=== PATIENT | female | born 1950 | race Caucasian/White ===

== ENCOUNTER → 2017-08-21 | Outpatient (CLI) | payer BC, MEDICARE ==
[~2017-08-21] MED LIST: DENOSUMAB 60 MG/ML 1 ML SYRINGE SQ ONE
[2017-08-21 08:25] VITALS: BP 138/71; PULSE 47; RESP 16; TEMP 98.1
== END | disposition home or self-care (01) ==
LOC: PROCWHC3 08:16
PROVIDERS: ATTEND Family Medicine
DX: M81.0 Age-related osteoporosis without current pathological fracture (principal)
CPT/HCPCS: 96372; J0897

== ENCOUNTER → 2020-06-30 | Outpatient (CLI) | payer MEDICARE ==
--- NOTE | 2020-07-03 08:43 | MM ---
Reason for exam: screening (asymptomatic). Last mammogram was performed 4 years and 1 month ago. History: Patient is postmenopausal. Family history of breast cancer in sister at age 62. Benign MG stereo VAD BX LT of the left breast, December 10, 2015. Took progesterone for 2 months. Physical Findings: A clinical breast exam by your physician is recommended on an annual basis and results should be correlated with mammographic findings. MG 3D Screening Mammo W/Cad Bilateral CC and MLO view(s) were taken. Prior study comparison: February 14, 2018, mammogram. June 06, 2016, left breast MG diagnostic mammo LT w CAD. November 23, 2015, mammogram, performed at [facility]. There are scattered fibroglandular densities. Previous mammotome biopsy in the left breast. There is no discrete abnormality. ASSESSMENT: Benign, BI-RAD 2 RECOMMENDATION: Routine screening mammogram of both breasts in 1 year.
== END | disposition home or self-care (01) ==
LOC: RADMAMWWP 10:10
PROVIDERS: ATTEND Family Medicine
DX: Z12.31 Encounter for screening mammogram for malignant neoplasm of breast (principal); Z80.3 Family history of malignant neoplasm of breast
CPT/HCPCS: 77063; 77067

== ENCOUNTER 2021-09-07 08:37 | Day surgery (SDC) | payer MEDICARE ==
[2021-09-03 10:59] VITALS: BMI 27.8
[~2021-09-07 08:37] MED LIST changes: -DENOSUMAB 60 MG/ML 1 ML SYRINGE SQ ONE; +LACTATED RINGERS 1,000 ML IV SCH; +LIDOCAINE 1% (10MG/ML) FOR IV START INTRADERMA PRN
[2021-09-07 09:02] VITALS: TEMP 97.2
[2021-09-07] MEDS ORDERED: PROPOFOL 10 MG/ML 20 ML VIAL IV ONE (09:25)
--- NOTE | 2021-09-07 09:43 | P.PCN ---
Date of Procedure: 09/07/21 Procedure(s) Performed: BRIEF HISTORY: Patient is a 70-year-old pleasant female scheduled for an elective colonoscopy as a part of surveillance of long-standing history of ulcerative colitis diagnosed many years ago. Her last colonoscopy was in 2009. Lately she is been having intermittent diarrhea. Maintained on Asacol 800 mg by mouth twice a day PROCEDURE PERFORMED: Colonoscopy with random biopsies. PREOPERATIVE DIAGNOSIS: Long-standing history of ulcerative colitis. IV sedation per Anesthesia. PROCEDURE: After informed consent was obtained, the patient, was brought into the endoscopy unit. IV sedation was administered by Anesthesia under continuous monitoring. Digital rectal examination was normal. Initially the Olympus CF-160 flexible video colonoscope was then inserted in the rectum, gradually advanced into the cecum without any difficulty. Careful examination was performed as the scope was gradually being withdrawn. Ileocecal valve and the appendiceal orifice were visualized and appeared normal. Prep was excellent. Mucosa of the cecum, ascending colon, transverse colon, descending colon, sigmoid colon, and rectum appeared normal. However there were multiple scattered pseudopolyps noted mostly in the hepatic flexure, ascending colon, transverse colon and descending colon and random biopsies were done at every 10 cm into well to rule out dysplasia. Retroflexion was performed in the rectum and no lesions were seen. The patient tolerated the procedure well. IMPRESSION: Multiple scattered pseudopolyps noted throughout the entire colon more prominent in the transverse colon, hepatic flexure and descending colon status post multiple biopsies to rule out dysplasia No evidence of active colitis RECOMMENDATIONS: Findings of this examination were discussed with the patient as well as her family. She was advised to follow with the biopsy results. If the biopsy does not reveal any evidence of dysplasia, she can have a repeat colonoscopy every 2 years.
[2021-09-07 09:48] VITALS: PULSE 52; RESP 16
[2021-09-07 10:04] VITALS: BP 119/72
== END 2021-09-07 10:37 | disposition home or self-care (01) ==
LOC: ORWHC2ENDO 08:37
PROVIDERS: ATTEND Internal Medicine Gastroenterology
DX: K51.40 Inflammatory polyps of colon without complications (principal); Z79.899 Other long term (current) drug therapy; Z90.710 Acquired absence of both cervix and uterus; Z90.49 Acquired absence of other specified parts of digestive tract; Z98.890 Other specified postprocedural states; Z97.2 Presence of dental prosthetic device (complete) (partial)
CPT/HCPCS: 88305; 45380; J2704

== ENCOUNTER 2023-09-15 10:21 | Emergency (ER) | payer MEDICARE ==
--- NOTE | 2023-09-15 10:54 | ED ---
General Adult HPI - General Chief complaint: Recheck/Abnormal Lab/Rx Stated complaint: abn EKG Time Seen by Provider: 09/15/23 10:32 Source: patient, RN notes reviewed Mode of arrival: ambulatory Limitations: no limitations - History of Present Illness Initial comments: 72-year-old female presents to the emergency department for evaluation of shortness of breath. Patient states that she was evaluated at urgent care today, an EKG was performed at that time the patient was found to be bradycardic with a rate of 46. She does report having a slower heart rate at baseline. Patient reports that she has had cough, congestion for the past 2 days. She e ndorses some breathing trouble since this started. She denies any chest pain. She admits to chills, no documented fever. She states that her grandson has the same symptoms. - Related Data Home Medications Medication Instructions Recorded Confirmed Mesalamine [Asacol Hd] 800 mg PO BID 10/06/15 09/03/21 Potassium Chloride [Klor-Con 20] 20 meq PO DAILY 10/06/15 09/03/21 Ergocalciferol [Vitamin D2 (1250 1,250 mcg PO WEEKLY 09/03/21 09/07/21 Mcg = 16777 Iu)] Raloxifene [Evista] 60 mg PO DAILY 09/03/21 09/03/21 Allergies Allergy/AdvReac Type Severity Reaction Status Date / Time No Known Allergies Allergy Verified 09/15/23 10:27 Review of Systems ROS Statement: Those systems with pertinent positive or pertinent negative responses have been documented in the HPI. ROS Other: All systems not noted in ROS Statement are negative. Past Medical History Additional Past Medical History / Comment(s): ulcerative colitis, polyps, Hx bowel obstruction x2., hepatitis (in her 20's). History of Any Multi-Drug Resistant Organisms: None Reported Past Surgical History: Appendectomy, Bowel Resection, Cholecystectomy, Hysterectomy Additional Past Surgical History / Comment(s): colonoscopy, bunionectomies, bowel resection x2-last surg 09-23-15. Past Anesthesia/Blood Transfusion Reactions: No Reported Reaction Past Psychological History: No Psychological Hx Reported Smoking Status: Former smoker Past Alcohol Use History: None Reported Past Drug Use History: None Reported - Past Family History Mother Family Medical History: Cancer Additional Family Medical History / Comment(s): uterine Father Family Medical History: Asthma Sister(s) Family Medical History: Asthma, Cancer, Diabetes Mellitus Additional Family Medical History / Comment(s): breast, 2 sisters with bladder cancer Brother(s) Family Medical History: Cancer Additional Family Medical History / Comment(s): prostate cancer General Exam Limitations: no limitations General appearance: alert, in no apparent distress Head exam: Present: atraumatic, normocephalic, normal inspection Eye exam: Present: normal appearance, PERRL, EOMI. Absent: scleral icterus, conjunctival injection, periorbital swelling ENT exam: Present: normal exam, mucous membranes moist Neck exam: Present: normal inspection. Absent: tenderness, meningismus, lymphadenopathy Respiratory exam: Present: normal lung sounds bilaterally. Absent: respiratory distress, wheezes, rales, rhonchi, stridor Cardiovascular Exam: Present: normal rhythm, bradycardia Course Vital Signs 09/15/23 09/15/23 09/15/23 10:26 13:06 13:15 Temperature 98.1 F 98.1 F Pulse Rate 51 L 53 L Respiratory 18 18 18 Rate Blood Pressure 126/80 122/79 O2 Sat by Pulse 99 99 Oximetry Medical Decision Making - Medical Decision Making Was pt. sent in by a medical professional or institution (, [facility], [employer], urgent care, hospital, or half-way...) When possible be specific @ -Sent in by urgent care Did you speak to anyone other than the patient for history (EMS, parent, family, police, friend...)? What history was obtained from this source @ -No Did you review nursing and triage notes (agree or disagree)? Why? @ -I reviewed and agree with nursing and triage notes Were old charts reviewed (outside hosp., previous admission, EMS record, old EKG, old radiological studies, urgent care reports/EKG's, half-way records)? Report findings @ -EKG from urgent care was reviewed which shows sinus bradycardia with a rate of 46 Differential Diagnosis (chest pain, altered mental status, abdominal pain women, abdominal pain men, vaginal bleeding, weakness, fever, dyspnea, syncope, headache, dizziness, GI bleed, back pain, seizure, CVA, palpatations, mental health, musculoskeletal)? @ -Differential Dyspnea: Coronary syndrome, arrhythmia, tamponade, asthma, COPD, pulmonary embolism, pneumonia, pneumothorax, pulmonary effusion, anaphylaxis, diabetic ketoacidosis, flailed chest, pulmonary contusion, diaphragmatic rupture, anemia, neuromuscular, this is not meant to be an all-inclusive list. EKG interpreted by me (3pts min.). @ -EKG at 1034 shows sinus bradycardia with PVCs rate 50, NC 123, QRS 180, QTQTc [id number] X-rays interpreted by me (1pt min.). @ -None done CT interpreted by me (1pt min.). @ -None done U/S interpreted by me (1pt. min.). @ -None done What testing was considered but not performed or refused? (CT, X-rays, U/S, labs)? Why? @ -None What meds were considered but not given or refused? Why? @ -None Did you discuss the management of the patient with other professionals (professionals i.e. , PA, [employer], lab, RT, psych nurse, geriatric social work professor, spinner cap frame, teacher, real estate utilization officer, high risk case manager)? Give summary @ -No Was smoking cessation discussed for >3mins.? @ -No Was critical care preformed (if so, how long)? @ -No Were there social determinants of health that impacted care today? How? (Homelessness, low income, unemployed, alcoholism, drug addiction, transportation, low edu. Level, literacy, decrease access to med. care, assisted, rehab)? @ -No Was there de-escalation of care discussed even if they declined (Discuss DNR or withdrawal of care, Hospice)? DNR status @ -No What co-morbidities impacted this encounter? (DM, HTN, Smoking, COPD, CAD, Cancer, CVA, ARF, Chemo, Hep., AIDS, mental health diagnosis, sleep apnea, morbid obesity)? @ -None Was patient admitted / discharged? Hospital course, mention meds given and route, prescriptions, significant lab abnormalities, going to OR and other pertinent info. @ -Discharge. Patient presented to the emergency department for evaluation of upper respiratory symptoms. She was tested for COVID and influenza at urgent care which were negative. Laboratory studies obtained which are insignificant. Patient does have underlying bradycardia which she states is typical for her. She denies any chest pain, shortness of breath. Chest x-ray shows no acute process. Patient will be discharged home. Patient understanding agreeable with discharge plan. Patient stable at time of discharge. Case discussed with Dr. Taylor Undiagnosed new problem with uncertain prognosis? @ -No Drug Therapy requiring intensive monitoring for toxicity (Heparin, Nitro, Insulin, Cardizem)? @ -No Were any procedures done? @ -No Diagnosis/symptom? @ -Viral URI Acute, or Chronic, or Acute on Chronic? @ -acute Uncomplicated (without systemic symptoms) or Complicated (systemic symptoms)? @ -uncomplicated Side effects of treatment? @ -No Exacerbation, Progression, or Severe Exacerbation? @ -No Poses a threat to life or bodily function? How? (Chest pain, USA, MT, pneumonia, PE, COPD, DKA, ARF, appy, cholecystitis, CVA, Diverticulitis, Homicidal, S uicidal, threat to staff... and all critical care pts) @ -No - Lab Data Result diagrams: 09/15/23 11:14 09/15/23 11:14 Lab Results 09/15/23 09/15/23 09/15/23 Range/Units 11:14 11:14 11:14 WBC 4.1 (3.8-10.6) k/uL RBC 4.48 (3.80-5.40) m/uL Hgb 13.4 (11.4-16.0) gm/dL Hct 41.2 (34.0-46.0) % MCV 91.8 (80.0-100.0) fL MCH 29.8 (25.0-35.0) pg MCHC 32.4 (31.0-37.0) g/dL RDW 13.3 (11.5-15.5) % Plt Count 135 L (150-450) k/uL MPV 9.6 Neutrophils % 52 % Lymphocytes % 30 % Monocytes % 8 % Eosinophils % 6 % Basophils % 1 % Neutrophils # 2.1 (1.3-7.7) k/uL Lymphocytes # 1.2 (1.0-4.8) k/uL Monocytes # 0.3 (0-1.0) k/uL Eosinophils # 0.3 (0-0.7) k/uL Basophils # 0.1 (0-0.2) k/uL PT 10.8 (10.0-12.5) sec INR 1.0 (<1.2) APTT 24.4 (22.0-30.0) sec Sodium 137 (137-145) mmol/L Potassium 4.3 (3.5-5.1) mmol/L Chloride 109 H (98-107) mmol/L Carbon Dioxide 22 (22-30) mmol/L Anion Gap 6 mmol/L BUN 11 (7-17) mg/dL Creatinine 0.65 (0.52-1.04) mg/dL Est GFR (CKD-EPI)AfAm >90 (>60 ml/min/1.73 sqM) Est GFR (CKD-EPI)NonAf 90 (>60 ml/min/1.73 sqM) Glucose 84 (74-99) mg/dL Calcium 8.7 (8.4-10.2) mg/dL Magnesium 1.8 (1.6-2.3) mg/dL Total Bilirubin 0.6 (0.2-1.3) mg/dL AST 30 (14-36) U/L ALT 16 (4-34) U/L Alkaline Phosphatase 81 (38-126) U/L Troponin I (0.000-0.034) ng/mL NT-Pro-B Natriuret Pep 873 pg/mL Total Protein 6.5 (6.3-8.2) g/dL Albumin 4.0 (3.5-5.0) g/dL 09/15/23 Range/Units 11:14 WBC (3.8-10.6) k/uL RBC (3.80-5.40) m/uL Hgb (11.4-16.0) gm/dL Hct (34.0-46.0) % MCV (80.0-100.0) fL MCH (25.0-35.0) pg MCHC (31.0-37.0) g/dL RDW (11.5-15.5) % Plt Count (150-450) k/uL MPV Neutrophils % % Lymphocytes % % Monocytes % % Eosinophils % % Basophils % % Neutrophils # (1.3-7.7) k/uL Lymphocytes # (1.0-4.8) k/uL Monocytes # (0-1.0) k/uL Eosinophils # (0-0.7) k/uL Basophils # (0-0.2) k/uL PT (10.0-12.5) sec INR (<1.2) APTT (22.0-30.0) sec Sodium (137-145) mmol/L Potassium (3.5-5.1) mmol/L Chloride (98-107) mmol/L Carbon Dioxide (22-30) mmol/L Anion Gap mmol/L BUN (7-17) mg/dL Creatinine (0.52-1.04) mg/dL Est GFR (CKD-EPI)AfAm (>60 ml/min/1.73 sqM) Est GFR (CKD-EPI)NonAf (>60 ml/min/1.73 sqM) Glucose (74-99) mg/dL Calcium (8.4-10.2) mg/dL Magnesium (1.6-2.3) mg/dL Total Bilirubin (0.2-1.3) mg/dL AST (14-36) U/L ALT (4-34) U/L Alkaline Phosphatase (38-126) U/L Troponin I <0.012 (0.000-0.034) ng/mL NT-Pro-B Natriuret Pep pg/mL Total Protein (6.3-8.2) g/dL Albumin (3.5-5.0) g/dL Disposition Clinical Impression: Viral URI Disposition: HOME SELF-CARE Condition: Stable Instructions (If sedation given, give patient instructions): Upper Respiratory Infection (ED) Additional Instructions: Please follow-up with your primary care provider. Return to the emergency de partment for new or worsening symptoms. Is patient prescribed a controlled substance at d/c from ED?: No Referrals: Omaira Blum DO [Primary Care Provider] - 1-2 days
[2023-09-15 10:56] VITALS: RESP 18; TEMP 98.1
[2023-09-15 11:55] LABS: Basophils # (A) 0.1 k/uL (0-0.2); Basophils % (A) 1 %; Eosinophils # (A) 0.3 k/uL (0-0.7); Eosinophils % (A) 6 %; HCT 41.2 % (34.0-46.0); HGB 13.4 gm/dL (11.4-16.0); Lymphocytes # (A) 1.2 k/uL (1.0-4.8); Lymphocytes % (A) 30 %; MCH 29.8 pg (25.0-35.0); MCHC 32.4 g/dL (31.0-37.0); MCV 91.8 fL (80.0-100.0); Mean Platelet Volume 9.6; Monocytes # (A) 0.3 k/uL (0-1.0); Monocytes % (A) 8 %; Neutrophils # (A) 2.1 k/uL (1.3-7.7); Neutrophils % (A) 52 %; Platelet Count 135 k/uL (150-450); RBC 4.48 m/uL (3.80-5.40); RDW 13.3 % (11.5-15.5); WBC 4.1 k/uL (3.8-10.6)
[2023-09-15 11:57] LABS: ALT 16 U/L (4-34); AST 30 U/L (14-36); African American GFR (CKD) >90 (>60 ml/min/1.73 sqM); Alkaline Phosphatase 81 U/L (38-126); Anion Gap 6 mmol/L; Blood Urea Nitrogen 11 mg/dL (7-17); Calcium 8.7 mg/dL (8.4-10.2); Carbon Dioxide 22 mmol/L (22-30); Chloride 109 mmol/L (98-107); Glucose 84 mg/dL (74-99); Magnesium 1.8 mg/dL (1.6-2.3); Non-African American GFR(CKD) 90 (>60 ml/min/1.73 sqM); Potassium 4.3 mmol/L (3.5-5.1); Sodium 137 mmol/L (137-145); Total Bilirubin 0.6 mg/dL (0.2-1.3); Total Protein 6.5 g/dL (6.3-8.2)
[2023-09-15 12:04] LABS: NT-Pro-B-Type Natriuretic Pept 873 pg/mL
--- NOTE | 2023-09-15 12:12 | XR ---
EXAMINATION TYPE: XR chest 2V DATE OF EXAM: 09/15/2023 COMPARISON: NONE HISTORY: Dysrhythmia. TECHNIQUE: Frontal and lateral views of the chest are obtained. FINDINGS: There is no focal air space opacity, pleural effusion, or pneumothorax seen. The cardiac silhouette size is within normal limits. The osseous structures are intact. IMPRESSION: No acute cardiopulmonary process.
[2023-09-15 12:25] LABS: Partial Thromboplastin Time 24.4 sec (22.0-30.0); Prothrombin Time 10.8 sec (10.0-12.5)
[2023-09-15 13:33] VITALS: BP 122/79; PULSE 53
== END 2023-09-15 14:36 | disposition home or self-care (01) ==
LOC: EC 10:21
DX: J06.9 Acute upper respiratory infection, unspecified (principal); R00.1 Bradycardia, unspecified; Z87.891 Personal history of nicotine dependence
CPT/HCPCS: 36415; 71046; 80053; 83735; 83880; 84484; 85025; 85610; 85730; 93005; 99285

== ENCOUNTER 2024-04-23 10:00 | Day surgery (SDC) | payer MEDICARE, BC ==
[~2024-04-23 10:00] MED LIST changes: -LIDOCAINE 1% (10MG/ML) FOR IV START INTRADERMA PRN
[2024-04-23 10:52] VITALS: TEMP 97
[2024-04-23 11:00] LABS: Glucose,Whole Blood 86 mg/dL (70-110)
[2024-04-23] MEDS: IV FLUID CONTINUATION 1,000 ML IV ONE (11:01)
[2024-04-23] MEDS ORDERED: PROPOFOL 10 MG/ML 20 ML VIAL IV ONE (11:40)
--- NOTE | 2024-04-23 12:01 | P.PCN ---
Date of Procedure: 04/23/24 Procedure(s) Performed: BRIEF HISTORY: Patient is a 73-year-old pleasant white female scheduled for an elective colonoscopy as a part of screening for colon cancer/longstanding history of ulcerative colitis diagnosed many years ago. PROCEDURE PERFORMED: Colonoscopy with random biopsies. PREOPERATIVE DIAGNOSIS: Screening for colon cancer/longstanding history of ulcerative colitis. IV sedation per Anesthesia. PROCEDURE: After informed consent was obtained, the patient, was brought into the endoscopy unit. IV sedation was administered by Anesthesia under continuous monitoring. Digital rectal examination was normal. Initially the Olympus CF-160 flexible video colonoscope was then inserted in the rectum, gradually advanced into the cecum without any difficulty. Careful examination was performed as the scope was gradually being withdrawn. Ileocecal valve and the appendiceal orifice were visualized and appeared normal. Prep was poor in several areas of the colon. The visualized portions of the mucosa of the cecum, ascending colon, transverse colon, descending colon, sigmoid colon, and rectum had no active colitis but there were multiple scattered pseudopolyps noted throughout the entire colon. Random biopsies were done from the rectum to cecum at every 10 cm intervals to rule out dysplasia. Retroflexion was performed in the rectum and no lesions were seen. The patient tolerated the procedure well. IMPRESSION: Scattered pseudopolyps noted throughout the entire colon with no evidence of active colitis or colorectal neoplasia RECOMMENDATIONS: Findings of this examination were discussed with the patient as well as her family. She was advised to follow-up with the biopsy results. If the biopsy does not show any evidence of dysplasia, she can have repeat colonoscopy in 2 years..
[2024-04-23 12:21] VITALS: BP 142/71; PULSE 58; RESP 18
== END 2024-04-23 13:14 | disposition home or self-care (01) ==
LOC: ORWHC2ENDO 10:00
PROVIDERS: ATTEND Internal Medicine Gastroenterology
DX: K51.90 Ulcerative colitis, unspecified, without complications
CPT/HCPCS: 45380; 88305

== ENCOUNTER → 2024-04-25 | Outpatient (CLI) | payer MEDICARE, BC ==
--- NOTE | 2024-04-28 11:13 | MM ---
Reason for Exam: Screening (asymptomatic). Last screening mammogram was performed 12 month(s) ago. Patient History: Menarche at age 14. First Full-Term at age 18. Hysterectomy at age 33. Postmenopausal. Progesterone for 2 months. 12/10/2015, Benign Core Biopsy on the left side. Niece had breast cancer, age 38. Risk Values: Carlota 5 year model risk: 1.5%. NCI Lifetime model risk: 3.9%. Prior Study Comparison: 11/11/2015 Screening Mammogram, [facility]. 11/23/2015 Screening Mammogram, [facility]. 06/06/2016 Left Diagnostic Mammogram, [facility]. 02/14/2018 Screening Mammogram, Unknown. 06/30/2020 Bilateral Screening Mammogram, [facility]. 09/13/2021 Bilateral Screening Mammogram, [facility]. 04/24/2023 Bilateral MG 3D screening mammo w/cad, [facility]. Tissue Density: There are scattered areas of fibroglandular density. Findings: Analyzed By CAD. The pattern is symmetrical. No significant interval change is evident. There are markers within the left breast. No suspicious groups of microcalcifications, spiculated or lobular masses, architectural distortion or other secondary signs of malignancy are mammographically apparent. Overall Assessment: Benign, BI-RAD 2 Management: Screening Mammogram of both breasts in 1 year. A negative mammogram report should not preclude additional follow up of suspicious palpable abnormalities. Patient should continue monthly self breast exam. A clinical breast exam by your physician is recommended on an annual basis and results should be correlated with mammographic findings. Note on Carlota scores and lifetime risk: 1. A Carlota score greater than 3% is considered moderate risk. If this is the case, consider specialist referral to assess eligibility for a risk reducing agent. 2. If overall lifetime risk for the development of breast cancer is 20% or higher, the patient may qualify for future screening with alternating mammogram and breast MRI. [facility], , 04/28/2024 11:09 AM. Electronically signed and approved by: Jackson Rodas D.O. Radiologis
== END | disposition home or self-care (01) ==
LOC: RADMAMWWP 08:19
PROVIDERS: ATTEND Family Medicine
DX: Z80.3 Family history of malignant neoplasm of breast
CPT/HCPCS: 77063; 77067

== ENCOUNTER → 2024-05-15 | Outpatient (CLI) | payer MEDICARE, BC ==
--- NOTE | 2024-05-17 21:54 | NM ---
EXAMINATION TYPE: NM thyroid image w uptake DATE OF EXAM: 05/16/2024 COMPARISON: NONE CLINICAL INDICATION: Female, 73 years old with history of E04.2 NONTOXIC MULTINODULAR GOITER; TECHNIQUE: Thyroid iodine uptake is calculated and images performed after the oral administration of 308 uCi 1-123 Capsule. FINDINGS: There is some diminished activity in the upper pole of the left thyroid lobe. The 4 hour i odine uptake is calculated at 20% (normal range 8-14%). The 24-hour iodine uptake is calculated at 52 % (normal range 15-35%). IMPRESSION: Abnormal increased uptake consistent with hyperthyroidism. Diminished uptake upper pole l eft thyroid lobe could correlate to a hot thyroid nodule. Correlation with ultrasound is advised. [facility], , 05/17/2024 9:52 PM
== END | disposition home or self-care (01) ==
LOC: RADNMMAIN 08:16
PROVIDERS: ATTEND Family Medicine
DX: E04.2 Nontoxic multinodular goiter (principal)
CPT/HCPCS: 78014